=== PATIENT | male | born 1985 | race African-American/Black ===

== ENCOUNTER 2017-10-10 16:48 | Emergency (ER) | payer MEDICAID ==
[~2017-10-10] VITALS: Ht 182.9 cm; Wt 79.4 kg
[2017-10-10 18:15] LABS: ABSOLUTE EOSINOPHILS 0.1 thou/uL (0.0-0.7); ABSOLUTE LYMPHOCYTES 2.4 thou/uL (0.8-5.3); ABSOLUTE MONOCYTES 0.9 thou/uL (0.0-1.2); ABSOLUTE NEUTROPHILS 10.7 thou/uL (1.6-8.1); BASOPHILS 0.2 %; EOSINOPHILS 0.6 %; HEMATOCRIT 52.1 % (42.0-52.0); HEMOGLOBIN 16.9 gm/dL (14.0-18.0); LYMPHOCYTES 16.8 %; MCH 28.1 pg (26.0-34.0); MCHC 32.4 g/dL (28.0-37.0); MCV 86.8 fL (80.0-100.0); MONOCYTES 6.3 %; MPV 9.6 fl. (7.2-11.1); NUCLEATED RBCS 0 /100WBC; PLATELET COUNT* 214 thou/uL (150-400); POLYS 76.1 %; RDW-CV 13.6 % (10.5-14.5); WBC 14.1 thou/uL (4.0-11.0)
[2017-10-10 18:24] LABS: APTT 28.9 Seconds (25.0-31.3); INR 1.2; PROTIME 11.2 Seconds (9.20-11.50)
[2017-10-10 18:37] LABS: CALCIUM 9.6 mg/dL (8.5-10.1); CREATININE 1.2 mg/dL (0.6-1.3)
[2017-10-10 18:38] LABS: POTASSIUM 2.8 mmol/L (3.5-5.1)
[2017-10-10 18:40] LABS: SALICYLATE 5.9 mg/dL (2.8-20.0)
[2017-10-10 18:41] LABS: TOTAL BILIRUBIN 0.6 mg/dL (<0.1-1.0); TOTAL PROTEIN 8.6 g/dL (6.4-8.2)
[2017-10-10 18:42] LABS: ALBUMIN 4.4 g/dL (3.4-5.0)
[2017-10-10] MEDS ORDERED: POTASSIUM20 PO (18:42)
[2017-10-10 18:56] LABS: ALCOHOL < 10 mg/dL (<10)
[2017-10-10 19:05] LABS: ACETAMINOPHEN < 2 ug/mL (10-30)
[2017-10-10 19:07] VITALS: BP 136/91
== END 2017-10-10 19:09 | disposition home or self-care (01) ==
LOC: M.ERS 16:48
PROVIDERS: Family Medicine
DX: R56.9 Unspecified convulsions (principal); E87.6 Hypokalemia